=== PATIENT | male | born 1945 | race Caucasian/White ===

== ENCOUNTER 2020-08-02 10:38 | Outpatient (REF) | payer OTHER, MEDICARE, SELFPAY | END 2020-08-02 10:39 | disposition home or self-care (01) | LOC: HO.HAP 10:38 | PROVIDERS: Visit Provider Internal Medicine Sports Medicine | DX: Z76.89 Persons encountering health services in other specified circumstances (principal) ==

== ENCOUNTER 2020-08-17 09:43 | Outpatient (REF) | payer OTHER, SELFPAY | END 2020-08-17 09:44 | disposition home or self-care (01) | LOC: HO.HAP 09:43 | PROVIDERS: Visit Provider Internal Medicine Sports Medicine | DX: Z46.1 Encounter for fitting and adjustment of hearing aid (principal) | CPT/HCPCS: V5011; V5020; V5160; V5261 ==

== ENCOUNTER 2020-08-23 14:40 | Outpatient (REF) | payer SELFPAY | END 2020-08-23 14:41 | disposition home or self-care (01) | LOC: HO.HAP 14:40 | PROVIDERS: Visit Provider Internal Medicine Sports Medicine | DX: Z13.89 Encounter for screening for other disorder (principal) | CPT/HCPCS: 92700 ==

== ENCOUNTER 2020-08-28 12:57 | Outpatient (REF) | payer SELFPAY | END 2020-08-28 12:58 | disposition home or self-care (01) | LOC: HO.HAP 12:57 | PROVIDERS: PCP Internal Medicine Sports Medicine; Referring Provider Internal Medicine Sports Medicine; Visit Provider Internal Medicine Sports Medicine | DX: Z13.89 Encounter for screening for other disorder (principal) | CPT/HCPCS: 92700 ==

== ENCOUNTER 2020-10-05 14:39 | Outpatient (REF) | payer SELFPAY | END 2020-10-05 14:40 | disposition home or self-care (01) | LOC: HO.HAP 14:39 | PROVIDERS: PCP Internal Medicine Sports Medicine; Referring Provider Internal Medicine Sports Medicine; Visit Provider Internal Medicine Sports Medicine | DX: Z13.89 Encounter for screening for other disorder (principal) | CPT/HCPCS: 92700 ==